=== PATIENT | male | born 1970 | race Caucasian/White ===

== ENCOUNTER 2017-08-19 15:37 | Emergency (ER) | payer SELFPAY ==
[2017-08-19] MEDS ORDERED: NS 0.9% 1000 ML* 1,000 ML IV ONE (17:11)
[2017-08-19 17:52] LABS: ABS Basophils 0 10^3/ul (0-0.2); ABS Eosinophils 0.1 10^3/ul (0-0.6); ABS Lymphocytes 1.4 10^3/ul (1.0-4.8); ABS Monocytes 0.8 10^3/ul (0-0.8); ABS Neutrophils 10.1 10^3/ul (1.5-7.7); ABS Nucleated RBC 0 10^3/ul; Eosinophil % 0.5 % (0-6); Hematocrit 38 % (42-52); Hemoglobin 12.2 g/dl (14.0-18.0); Lymphocyte % 11.5 % (25-47); Mean Corpuscular HGB Conc 33 g/dl (31-36); Mean Corpuscular Hemoglobin 28 pg (27-31); Mean Corpuscular Volume 85 fL (80-94); Mean Platelet Volume 7.9 um3 (7.4-10.4); Nucleated Red Blood Cells % 0; Platelet Count 301 10^3/ul (150-450); Red Blood Count 4.41 10^6/ul (4.0-5.4); Red Cell Distribution Width 13 % (10.5-15); White Blood Count 12.4 10^3/ul (3.5-10.8)
[2017-08-19 18:09] LABS: EGFR Non-African American 58.4 (>60)
[2017-08-19] MEDS ORDERED: Lidocaine 1%* 5 ML VIAL ONE (18:54)
[2017-08-19 19:09] VITALS: BP 119/87
--- NOTE | 2017-08-19 19:58 | ED ---
Shiva Suazo Stephanie, scribed for Beck Chavez MD on 08/19/17 at 1716 . Syncope/Near Syncope - HPI Summary HPI Summary: The pt is a 47 y/o M presenting to the ED with c/o syncope that occurred at 15: 00 today. Symptoms include lightheadedness, dizziness, nausea and pain at the occipital region of his head where he hit an object during his fall. The pt reports recent similar incidents. He states his prior incidents have occurred when he has been dehydrated. He works in a hot kitchen 6 days a week. - History Of Current Complaint Chief Complaint: EDSyncope Time Seen by Provider: 08/19/17 16:57 Hx Obtained From: Patient Onset/Duration: Sudden Onset, Lasting Minutes, Resolved Timing: Minutes Context: Witnessed Activity At Onset: At Rest Associated Head Trauma: Yes Aggravating Factor(s): Nothing Alleviating Factor(s): Nothing Associated Signs And Symptoms: Dizzy, Lightheadedness - Allergies/Home Medications Allergies/Adverse Reactions: Allergies Allergy/AdvReac Type Severity Reaction Status Date / Time ibuprofen Allergy Rash Verified 08/19/17 15:48 PMH/Surg Hx/FS Hx/Imm Hx Endocrine/Hematology History: Denies: Hx Diabetes Cardiovascular History: Denies: Hx Congestive Heart Failure, Hx Hypertension History: Denies: Hx Renal Disease Sensory History: Denies: Hx Legally Blind EENT History: Denies: Hx Deafness - Cancer History Cancer Type, Location and Year: hodgkins lymphoma in 20's, bone marrow transplant, in remission x20 years - Surgical History Surgery Procedure, Year, and Place: biopsies on abd Infectious Disease History: No Infectious Disease History: Reports: Hx Shingles Denies: Traveled Outside the [place] in Last 30 Days - Family History Known Family History: Positive: Other - mother with cirrhosis Negative: Blood Disorder - Social History Occupation: Employed Full-time Lives: With Family Alcohol Use: Daily Hx Substance Use: No Substance Use Type: Reports: None Hx Tobacco Use: No Smoking Status (MU): Never Smoked Tobacco Have You Smoked in the Last Year: No Review of Systems Negative: Fever Positive: Nausea Neurological: Other - lightheadedness, dizziness Positive: Syncope All Other Systems Reviewed And Are Negative: Yes Physical Exam - Summary Physical Exam Summary: Appearance: The patient is well-nourished in no acute distress and in no acute pain. Skin: The skin is warm and dry. There is a 7 cm clean laceration over occipital scalp. HEENT: The head is normocephalic and atraumatic. The pupils are equal and reactive. The conjunctivae are clear and without drainage. Nares are patent and without drainage. Mouth reveals moist mucous membranes and the throat is without erythema and exudate. The external ears are intact. The ear canals are patent and without drainage. The tympanic membranes are intact. Neck: the neck is supple with full range of motion and non-tender. There are no carotid bruits. There is no neck vein distension. Respiratory: Chest is non-tender. Lungs are clear to auscultation and breath sounds are symmetrical and equal. Cardiovascular: Heart is regular rate and rhythm. There is no murmur or rub auscultated. There is no peripheral edema and pulses are symmetrical and equal. Abdomen: The abdomen is soft and non-tender. There are normal bowel sounds heard in all four quadrants and there is no organomegaly palpated. Musculoskeletal: There is no back tenderness noted. Extremities are non-tender with full range of motion. There is good capillary refill. There is no peripheral edema or calf tenderness elicited. Neurological: Patient is alert and oriented to person, place and time. The patient has symmetrical motor strength in all four extremities. Cranial nerves are grossly intact. Deep tendon reflexes are symmetrical and equal in all four extremities. Psychiatric: The patient has an appropriate affect and does not exhibit any anxiety or depression. Triage Information Reviewed: Yes Vital Signs On Initial Exam: Initial Vitals Temp Pulse Resp BP Pulse Ox 97.4 F 70 15 137/80 98 08/19/17 15:45 08/19/17 15:45 08/19/17 15:45 08/19/17 15:45 08/19/17 15:45 Vital Signs Reviewed: Yes Procedures - Laceration/Wound Repair 1 Location: head Description: Linear Anesthesia: 2.0%, Lido Betadine Prep?: No - Used hibiclens prep Laceration/Wound Explored: clean Closure: [place] #__ - 7 Debridement: minimal Diagnostics - Vital Signs Vital Signs Temp Pulse Resp BP Pulse Ox 08/19/17 16:57 85 24 106/88 97 08/19/17 15:45 97.4 F 70 15 137/80 98 - Laboratory Lab Results: Lab Results 08/19/17 08/19/17 Range/Units 17:36 17:36 WBC 12.4 H (3.5-10.8) 10^3/ul RBC 4.41 (4.0-5.4) 10^6/ul Hgb 12.2 L (14.0-18.0) g/dl Hct 38 L (42-52) % MCV 85 (80-94) fL MCH 28 (27-31) pg MCHC 33 (31-36) g/dl RDW 13 (10.5-15) % Plt Count 301 (150-450) 10^3/ul MPV 7.9 (7.4-10.4) um3 Neut % (Auto) 81.5 (38-83) % Lymph % (Auto) 11.5 L (25-47) % [place] % (Auto) 6.2 (0-7) % Eos % (Auto) 0.5 (0-6) % Baso % (Auto) 0.3 (0-2) % Absolute Neuts (auto) 10.1 H (1.5-7.7) 10^3/ul Absolute Lymphs (auto) 1.4 (1.0-4.8) 10^3/ul Absolute Monos (auto) 0.8 (0-0.8) 10^3/ul Absolute Eos (auto) 0.1 (0-0.6) 10^3/ul Absolute Basos (auto) 0 (0-0.2) 10^3/ul Absolute Nucleated RBC 0 10^3/ul Nucleated RBC % 0 Sodium 137 L (139-145) mmol/L Potassium 4.3 (3.5-5.0) mmol/L Chloride 104 (101-111) mmol/L Carbon Dioxide 25 (22-32) mmol/L Anion Gap 8 (2-11) mmol/L BUN 22 (6-24) mg/dL Creatinine 1.31 H (0.67-1.17) mg/dL Est GFR ( Amer) 75.1 (>60) Est GFR (Non-Af Amer) 58.4 (>60) BUN/Creatinine Ratio 16.8 (8-20) Glucose 106 H (70-100) mg/dL Calcium 9.6 (8.6-10.3) mg/dL Total Bilirubin 0.40 (0.2-1.0) mg/dL AST 22 (13-39) U/L ALT 26 (7-52) U/L Alkaline Phosphatase 39 (34-104) U/L Troponin I 0.00 (<0.04) ng/mL Total Protein 7.1 (6.4-8.9) g/dL Albumin 4.5 (3.2-5.2) g/dL Globulin 2.6 (2-4) g/dL Albumin/Globulin Ratio 1.7 (1-3) Result Diagrams: 08/19/17 17:36 08/19/17 17:36 Lab Statement: Any lab studies that have been ordered have been reviewed, and results considered in the medical decision making process. - EKG 17:29 Cardiac Rate: NL EKG Rhythm: Sinus Rhythm - 70 BPM EKG Interpretation: LBBB EKG Comparison: No Significant Change - from previous Course/Dx Course Of Treatment: Mr. Martinez has had a problem with fainting and dizziness when standing up quickly etc. especially when at work. He works long hours in a hot kitchen. It happened today and he fell back and hit his head sustaining a laceration. I repaired his laceration with dayan and we watched him on the monitor while checking labs. His labs were onsistent with previous results. I recommended close F/U with a PCP to W/U his syncope. - Diagnoses Provider Diagnoses: Syncope, Scalp laceration Discharge - Sign-Out/Discharge Documenting (check all that apply): Discharge/Admit/Transfer - Discharge - Discharge Plan Condition: Stable Disposition: HOME Patient Education Materials: Laceration (ED), Syncope (ED) Referrals: [facility]FERR[facility] [Outside] Additional Instructions: Return to the ED for new or worsening symptoms. - Billing Disposition and Condition Condition: STABLE Disposition: HOME The documentation as recorded by the Shiva perez Stephanie accurately reflects the service I personally performed and the decisions made by me, Beck Chavez MD.
== END 2017-08-19 20:35 | disposition home or self-care (01) ==
LOC: ED 15:37
DX: R55 Syncope and collapse (principal); S01.01XA Laceration without foreign body of scalp, initial encounter; W18.00XA Striking against unspecified object with subsequent fall, initial encounter; Y93.9 Activity, unspecified; Y92.9 Unspecified place or not applicable; I44.7 Left bundle-branch block, unspecified; R11.0 Nausea; R42 Dizziness and giddiness; Z88.6 Allergy status to analgesic agent; Z85.71 Personal history of Hodgkin lymphoma; Z94.81 Bone marrow transplant status
CPT/HCPCS: 12002; 36415; 80053; 84484; 85025; 93005; 96360; 96361; 99283

== ENCOUNTER 2017-08-27 15:49 | Emergency (ER) | payer SELFPAY ==
[2017-08-27 18:36] LABS: Hematocrit 39 % (42-52); Hemoglobin 12.7 g/dl (14.0-18.0); Mean Corpuscular HGB Conc 33 g/dl (31-36); Mean Corpuscular Hemoglobin 28 pg (27-31); Mean Corpuscular Volume 86 fL (80-94); Mean Platelet Volume 7.3 um3 (7.4-10.4); Platelet Count 307 10^3/ul (150-450); Red Blood Count 4.51 10^6/ul (4.0-5.4); Red Cell Distribution Width 13 % (10.5-15); White Blood Count 9.3 10^3/ul (3.5-10.8)
[2017-08-27 18:50] LABS: EGFR Non-African American 53.6 (>60)
[2017-08-27 18:55] LABS: ABS Basophils 0 10^3/ul (0-0.2); ABS Eosinophils 0.2 10^3/ul (0-0.6); ABS Monocytes 0.8 10^3/ul (0-0.8); ABS Neutrophils 5.4 10^3/ul (1.5-7.7); ABS Nucleated RBC 0 10^3/ul; Eosinophil % 2.6 % (0-6); Lymphocyte % 31.7 % (25-47); Nucleated Red Blood Cells % 0
[2017-08-27 19:49] VITALS: BP 122/76
--- NOTE | 2017-08-28 06:02 | ED ---
Bhumi Suazo Emily, scribed for Beck Altamirano MD on 08/27/17 at 1905 . 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 The patient rates the pain 5/10 in severity. Symptoms aggravated by nothing. Symptoms alleviated by nothing. Patient reports intermittent left-lateral CP, syncope, and difficulty concentrating. Patient denies SOB, vomiting, nausea, bowel symptoms, and urinary symptoms. Pt reports a syncopal episode that occurred one week ago, which resulted in a head injury that needed symptoms. Pt reports multiple syncopal episodes, about 5 times in the last year and a half. Pt reports that if he moves quickly near syncope occurs. Pt reports dissimilar activities (at rest and active) on the onset of syncopal episodes. Pt denies any concurrent health concerns during these syncopal episodes. Pt reports stress associated to his work that began concurrently with the onset of the syncopal episodes. - History of Current Complaint Chief Complaint: EDDizziness Time Seen by Provider: 08/27/17 18:52 Hx Obtained From: Patient Onset/Duration: Sudden Onset, Lasting Weeks, Worse Since - This morning Severity: Moderate Cough: None - Allergies/Home Medications Allergies/Adverse Reactions: Allergies Allergy/AdvReac Type Severity Reaction Status Date / Time ibuprofen Allergy Rash Verified 08/19/17 15:48 PMH/Surg Hx/FS Hx/Imm Hx Previously Healthy: No Endocrine/Hematology History: Reports: Other Endocrine/Hematological Disorders - Hodgkin's disease Denies: Hx Diabetes Cardiovascular History: Denies: Hx Congestive Heart Failure, Hx Hypertension History: Denies: Hx Renal Disease Sensory History: Denies: Hx Legally Blind, Hx Deafness Opthamlomology History: Denies: Hx Legally Blind - Cancer History Cancer Type, Location and Year: hodgkins lymphoma in 20's, bone marrow transplant, in remission x20 years - Surgical History Surgery Procedure, Year, and Place: biopsies on abd Infectious Disease History: No Infectious Disease History: Reports: Hx Shingles Denies: Traveled Outside the [place] in Last 30 Days - Family History Known Family History: Positive: Diabetes, Other - mother with cirrhosis Negative: Blood Disorder - Social History Occupation: Employed Full-time Lives: With Family Alcohol Use: Daily Alcohol Amount: 2 beers Hx Substance Use: No Substance Use Type: Reports: None Hx Tobacco Use: No Smoking Status (MU): Never Smoked Tobacco Have You Smoked in the Last Year: No Review of Systems Positive: Blurred Vision Positive: Chest Pain Negative: Shortness Of Breath Gastrointestinal: Negative Negative: Vomiting, Nausea Genitourinary: Negative Neurological: Other - Positive difficulty concentrating. Positive: Syncope All Other Systems Reviewed And Are Negative: Yes Physical Exam - Summary Physical Exam Summary: Appearance: Well-appearing, Well-nourished, lying in bed comfortably Skin: Warm, dry, no obvious rash Eyes: sclera anicteric, no conjunctiva pallor ENT: mucous membranes moist, pharynx appears normal Neck: Supple, nontender Respiratory: Clear to auscultation, no signs of respiratory distress Cardiovascular: Normal S1, S2. No murmurs. Normal distal pulses in tibial and radial bilaterally. Abdomen: Soft, nontender, normal active bowel sounds present Musculoskeletal: Normal, Strength/ROM Intact Neurological: A&Ox3, awake and alert, mentation is normal, speech is fluent and appropriate Psychiatric: affect is normal, does not appear anxious or depressed Triage Information Reviewed: Yes Vital Signs On Initial Exam: Initial Vitals Temp Pulse Resp BP Pulse Ox 97.4 F 85 16 134/84 97 08/27/17 15:55 08/27/17 15:55 08/27/17 15:55 08/27/17 15:55 08/27/17 15:55 Vital Signs Reviewed: Yes Diagnostics - Vital Signs Vital Signs Temp Pulse Resp BP Pulse Ox 08/27/17 15:55 97.4 F 85 16 134/84 97 - Laboratory Lab Results: Lab Results 08/27/17 08/27/17 Range/Units 18:21 18:21 WBC 9.3 (3.5-10.8) 10^3/ul RBC 4.51 (4.0-5.4) 10^6/ul Hgb 12.7 L (14.0-18.0) g/dl Hct 39 L (42-52) % MCV 86 (80-94) fL MCH 28 (27-31) pg MCHC 33 (31-36) g/dl RDW 13 (10.5-15) % Plt Count 307 (150-450) 10^3/ul MPV 7.3 L (7.4-10.4) um3 Neut % (Auto) 56.8 (38-83) % Lymph % (Auto) 31.7 (25-47) % [place] % (Auto) 8.4 H (0-7) % Eos % (Auto) 2.6 (0-6) % Baso % (Auto) 0.5 (0-2) % Absolute Neuts (auto) 5.4 (1.5-7.7) 10^3/ul Absolute Lymphs (auto) 3.0 (1.0-4.8) 10^3/ul Absolute Monos (auto) 0.8 (0-0.8) 10^3/ul Absolute Eos (auto) 0.2 (0-0.6) 10^3/ul Absolute Basos (auto) 0 (0-0.2) 10^3/ul Absolute Nucleated RBC 0 10^3/ul Nucleated RBC % 0 Sodium 138 L (139-145) mmol/L Potassium TNP Chloride 103 (101-111) mmol/L Carbon Dioxide 29 (22-32) mmol/L Anion Gap 6 (2-11) mmol/L BUN 28 H (6-24) mg/dL Creatinine 1.41 H (0.67-1.17) mg/dL Est GFR ( Amer) 69.0 (>60) Est GFR (Non-Af Amer) 53.6 (>60) BUN/Creatinine Ratio 19.9 (8-20) Glucose 91 (70-100) mg/dL Calcium 9.9 (8.6-10.3) mg/dL Magnesium 1.9 (1.9-2.7) mg/dL Total Bilirubin 0.30 (0.2-1.0) mg/dL AST TNP ALT 25 (7-52) U/L Alkaline Phosphatase 44 (34-104) U/L Total Protein 7.4 (6.4-8.9) g/dL Albumin 4.5 (3.2-5.2) g/dL Globulin 2.9 (2-4) g/dL Albumin/Globulin Ratio 1.6 (1-3) TSH Pending Result Diagrams: 08/27/17 18:21 08/27/17 18:21 Lab Statement: Any lab studies that have been ordered have been reviewed, and results considered in the medical decision making process. - EKG 1630 Cardiac Rate: NL EKG Rhythm: Sinus Rhythm - 62 BPM EKG Interpretation: No STEMI EENT Course/Dx - Course Assessment/Plan: This is a healthy middle aged man with a h/o recurrent syncope that has a typical character for vasovagal episodes, postural mostly and only rarely cause any injury. His ekg is not concerning, nor is blood work. I counselled him regarding the likely etiology, recommended a f/u visit with a wh[employer] can worker when he is more situated with insurance. - Diagnoses Provider Diagnoses: Vasovagal syncope Discharge - Sign-Out/Discharge Documenting (check all that apply): Discharge/Admit/Transfer - Discharge Plan Condition: Good Disposition: HOME Patient Education Materials: Syncope (ED) Referrals: No Primary Care Phys,NOPCP [Primary Care Provider] - The documentation as recorded by the Bhumi perez Emily accurately reflects the service I personally performed and the decisions made by me, Beck Altamirano MD.
== END 2017-08-27 19:47 | disposition home or self-care (01) ==
LOC: ED 15:49
DX: R55 Syncope and collapse (principal); Z88.6 Allergy status to analgesic agent
CPT/HCPCS: 36415; 80053; 83735; 84443; 85025; 93005; 99283